=== PATIENT | female | born 1980 | race Caucasian/White ===

== ENCOUNTER 2020-04-24 05:55 | Emergency (ER) | payer SELFPAY ==
[~2020-04-24] VITALS: Ht 177.8 cm; Wt 100.0 kg
--- NOTE | 2020-04-24 06:08 | PHYS DOC ---
Past Medical History Past Medical History: Anxiety Past Surgical History: No Surgical History Smoking Status: Current Every Day Smoker Alcohol Use: None Drug Use: Methamphetamine General Adult EDM: Chief Complaint: ANXIETY/PANIC ATTACK HPI: HPI: 39-year-old female presents to the emergency department after getting in an argument with her boyfriend. Patient uncontrollably crying. Patient not sure why she feels lightheaded. Denies . Methamphetamine pipe found on patient's person upon arrival to ED. Patient reports she has been using methamphetamines as well. Review of Systems: Review of Systems: Constitutional: Denies fever or chills Eyes: Denies redness or eye pain HENT: Denies nasal congestion or sore throat Respiratory: Denies cough or shortness of breath Cardiovascular: Denies chest pain or palpitations GI: Denies abdominal pain, nausea, or vomiting : Denies dysuria or hematuria Musculoskeletal: Denies back pain or joint pain Integument: Denies rash or skin lesions Neurologic: Denies headache, focal weakness or sensory changes Complete systems were reviewed and found to be within normal limits, except as documented in this note. Allergies: Allergies: Allergies Coded Allergies Type Severity Reaction Last Updated Verified No Known Drug Allergies 08/29/14 No Physical Exam: PE: Constitutional: Well developed, well nourished, uncontrollably crying, mismatched clothing and socks HENT: Normocephalic, atraumatic Eyes: Conjunctiva normal, no discharge Neck: Normal range of motion, no tenderness, supple Lungs & Thorax: Hyperventilating, tachypnea, increased work of breathing Abdomen: Soft, no tenderness Skin: Warm, dry, no erythema, no rash Extremities: No tenderness, ROM intact, no edema Neurologic: Alert and oriented X 3, no focal deficits noted Psychologic: Affect anxious, judgment abnormal EKG: EKG: [] Radiology/Procedures: Radiology/Procedures: [] Course & Med Decision Making: Course & Med Decision Making Patient presents with HPI and physical exam consistent for panic attack. Patient not able to communicate well secondary to uncontrollable crying and hyperventilating. IM Ativan provided with interval improvement of symptoms. Patient now calm. Patient with reports of recent methamphetamine use. Patient stable for discharge with outpatient follow-up with PCP/mental health. Mental health resources provided. Discussed findings and plan with patient, who acknowledges understanding and agreement. Pepper Disclaimer: Pepper Disclaimer: This electronic medical record was generated, in whole or in part, using a voice recognition dictation system. Departure Departure Impression: Primary Impression: Anxiety Additional Impression: Methamphetamine abuse Disposition: 01 HOME, SELF-CARE Condition: STABLE Referrals: NO PCP (PCP) Patient Instructions: Alcohol and Drug Addiction, Finding Treatment, Anxiety and Panic Attacks, [id number], Methamphetamine Abuse, Complications Justicifation of Admission Dx: Justifications for Admission: Justification of Admission Dx: N/A TARYN BEMRUDEZ DO Apr 24, 2020 06:08
[2020-04-24 06:38] VITALS: BP 159/77
== END 2020-04-24 06:45 | disposition home or self-care (01) ==
LOC: ER 05:55
DX: F41.9 Anxiety disorder, unspecified (principal); F15.10 Other stimulant abuse, uncomplicated; F17.200 Nicotine dependence, unspecified, uncomplicated
CPT/HCPCS: 96372; 99283; J2060

== ENCOUNTER 2020-04-30 14:37 | Emergency (ER) | payer SELFPAY ==
[~2020-04-30] VITALS: Ht 177.8 cm; Wt 90.9 kg
[2020-04-30 15:20] VITALS: BP 157/91
--- NOTE | 2020-04-30 15:31 | PHYS DOC ---
Past Medical History Past Medical History: Anxiety Past Surgical History: No Surgical History Smoking Status: Current Every Day Smoker Alcohol Use: None Drug Use: Methamphetamine General Adult EDM: Chief Complaint: FOOT INJURY PAIN HPI: HPI: Patient is a 39 year old female who presents with states a couple years ago that she injured her right foot but was not take seen for it. She states that since then she will get these sharp shooting pains in her base of her first metatarsal on the lateral side. She states that she has not reinjured it she just gets intermittent shooting pains. She states that she can still walk on it and wiggle all of her toes. She denies any swelling, numbness or tingling, focal weakness, coolness of the extremity, color change. She states this is been going on for months. She currently rates her pain a 4 out of 10 because I had just been pushing on the area. Patient is ambulatory with a steady gait and has full range of motion of all joints in the right foot. Review of Systems: Review of Systems: Constitutional: Denies fever or chills. [] Eyes: Denies change in visual acuity. [] HENT: Denies nasal congestion or sore throat. [] Respiratory: Denies cough or shortness of breath. [] Cardiovascular: Denies chest pain or edema. [] GI: Denies abdominal pain, nausea, vomiting, bloody stools or diarrhea. [] : Denies dysuria. [] Musculoskeletal: Denies back pain. Right first metatarsal joint pain. [] Integument: Denies rash. [] Neurologic: Denies headache, focal weakness or sensory changes. [] Endocrine: Denies polyuria or polydipsia. [] Lymphatic: Denies swollen glands. [] Psychiatric: Denies depression or anxiety. [] Heart Score: Risk Factors: Risk Factors: DM, Current or recent (<one month) smoker, HTN, HLP, family history of CAD, obesity. Risk Scores: Score 0 - 3: 2.5% MACE over next 6 weeks - Discharge Home Score 4 - 6: 20.3% MACE over next 6 weeks - Admit for Clinical Observation Score 7 - 10: 72.7% MACE over next 6 weeks - Early Invasive Strategies Allergies: Allergies: Allergies Coded Allergies Type Severity Reaction Last Updated Verified No Known Drug Allergies 08/29/14 No Physical Exam: PE: Constitutional: Well developed, well nourished, no acute distress, non-toxic appearance. [] HENT: Normocephalic, atraumatic, bilateral external ears normal, oropharynx moist, no oral exudates, nose normal. [] Eyes: PERRLA, EOMI, conjunctiva normal, no discharge. [] Neck: Normal range of motion, no tenderness, supple, no stridor. [] Cardiovascular:Heart rate regular rhythm, no murmur [] Lungs & Thorax: Bilateral breath sounds clear to auscultation [] Abdomen: Bowel sounds normal, soft, no tenderness, no masses, no pulsatile masses. [] Skin: Warm, dry, no erythema, no rash. [] Back: No tenderness, no CVA tenderness. [] Extremities: No tenderness, no cyanosis, no clubbing, ROM intact, no edema. [] Neurologic: Alert and oriented X 3, normal motor function, normal sensory function, no focal deficits noted. [] Psychologic: Affect normal, judgement normal, mood normal. Normal Physical Exam[] EKG: EKG: [] Radiology/Procedures: Radiology/Procedures: [] Course & Med Decision Making: Course & Med Decision Making Pertinent Labs and Imaging studies reviewed. (See chart for details) Patient states she has not taken any medications to help her with the pain. She states that it is worse with wearing high heels or certain tennis shoes. Patient is alert and oriented. Speaks in full complete sentences. Pedal pulses strong and present. No swelling or redness of any joints or of the extremity itself. No calf tenderness. Skin pink warm and dry. Cap refill less than 3 seconds. Ambulatory with a steady gait. Patient is MSE. No tenderness to the extremity with palpation or the joint. [] Dragon Disclaimer: Dragon Disclaimer: This electronic medical record was generated, in whole or in part, using a voice recognition dictation system. Departure Departure Impression: Primary Impression: Encounter for medical screening examination Disposition: 01 HOME, SELF-CARE Condition: STABLE Referrals: NO PCP (PCP) Patient Instructions: Medical Screening Exam Additional Instructions: Follow up with a primary care provider. Use ice to help with pain. Use Ibuprofen or tylenol for pain. Justicifation of Admission Dx: Justifications for Admission: Justification of Admission Dx: N/A JAMI SOLANO APRN Apr 30, 2020 15:31
== END 2020-04-30 15:30 | disposition home or self-care (01) ==
LOC: ER 14:37
DX: M25.571 Pain in right ankle and joints of right foot (principal); F17.200 Nicotine dependence, unspecified, uncomplicated
CPT/HCPCS: 99282

== ENCOUNTER 2021-06-28 02:52 | Emergency (ER) | payer SELFPAY ==
[~2021-06-28] VITALS: Ht 172.7 cm; Wt 90.9 kg
--- NOTE | 2021-06-28 03:37 | PHYS DOC ---
Past Medical History Past Medical History: Anxiety Past Surgical History: No Surgical History Smoking Status: Current Every Day Smoker Alcohol Use: None Drug Use: Methamphetamine General Adult EDM: Chief Complaint: FLANK PAIN HPI: HPI: Patient is a 40-year-old female presenting for right flank pain. Onset of injury was 4 days ago, she was performing yard work and got hit on the right flank with 2 x 10 object when trying to offload it from a vehicle. She reported immediate right flank pain but thought nothing of it. Reported right-sided flank pain ever since that has been steady and constant since onset. Reported development of right flank bruising that has worsened over past 48 hours. Admits history of cholecystectomy only, no other intra-abdominal abnormalities. She is otherwise healthy with no known medical diagnoses, no medications or blood thinner use. She has had no fever, shortness of breath, chest pain, ripping or tearing sensation in torso, bladder or bowel incontinence, urinary symptoms or hematuria Review of Systems: Review of Systems: Fourteen body systems of review of systems have been reviewed. See HPI for pertinent positives and negative responses, other carballo all other systems are negative, non-pertinent or non-contributory Heart Score: C/O Chest Pain: No Risk Factors: Risk Factors: DM, Current or recent (<one month) smoker, HTN, HLP, family history of CAD, obesity. Risk Scores: Score 0 - 3: 2.5% MACE over next 6 weeks - Discharge Home Score 4 - 6: 20.3% MACE over next 6 weeks - Admit for Clinical Observation Score 7 - 10: 72.7% MACE over next 6 weeks - Early Invasive Strategies Allergies: Allergies: Allergies Coded Allergies Type Severity Reaction Last Updated Verified No Known Drug Allergies 08/29/14 No Physical Exam: PE: Constitutional: Well developed, well nourished, no acute distress, non-toxic appearance. HENT: Normocephalic, atraumatic, bilateral external ears normal, oropharynx moist, no oral exudates, nose normal. Eyes: PERRLA, EOMI, conjunctiva normal, no discharge. Neck: Normal range of motion, no tenderness, supple, no stridor. Cardiovascular: Heart rate regular, sinus rhythm, no murmurs rubs or gallops Lungs & Thorax: Bilateral breath sounds clear to auscultation Abdomen: Bowel sounds normal, soft, mild tenderness present to right flank with ecchymosis consistent with Valencia Acosta's sign, no masses, no pulsatile masses. Nonsurgical abdomen, no peritoneal signs Skin: Warm, dry, no erythema, no rash. Back: No tenderness, right CVA tenderness. Extremities: No tenderness, no cyanosis, no clubbing, ROM intact, no edema. Neurologic: Alert and oriented X 3, grossly normal motor & sensory function, no focal deficits noted. Psychologic: Affect normal, judgement normal, mood normal. Current Patient Data: Labs: Laboratory Tests Test 06/28/21 04:00 06/28/21 04:44 06/28/21 04:48 White Blood Count 5.8 x10^3/uL Red Blood Count 4.16 x10^6/uL Hemoglobin 12.6 g/dL Hematocrit 37.3 % Mean Corpuscular Volume 90 fL Mean Corpuscular Hemoglobin 30 pg Mean Corpuscular Hemoglobin Concent 34 g/dL Red Cell Distribution Width 13.3 % Platelet Count 225 x10^3/uL Neutrophils (%) (Auto) 61 % Lymphocytes (%) (Auto) 20 % Monocytes (%) (Auto) 14 % Eosinophils (%) (Auto) 3 % Basophils (%) (Auto) 2 % Neutrophils # (Auto) 3.5 x10^3/uL Lymphocytes # (Auto) 1.2 x10^3/uL Monocytes # (Auto) 0.8 x10^3/uL Eosinophils # (Auto) 0.2 x10^3/uL Basophils # (Auto) 0.1 x10^3/uL Sodium Level 141 mmol/L Potassium Level 3.9 mmol/L Chloride Level 103 mmol/L Carbon Dioxide Level 32 mmol/L Anion Gap 6 Blood Urea Nitrogen 17 mg/dL Creatinine 1.0 mg/dL Estimated GFR (Cockcroft-Gault) 62.1 BUN/Creatinine Ratio 17 Glucose Level 92 mg/dL Calcium Level 8.4 mg/dL Total Bilirubin 0.1 mg/dL Aspartate Amino Transf (AST/SGOT) 8 U/L Alanine Aminotransferase (ALT/SGPT) 24 U/L Alkaline Phosphatase 58 U/L Total Protein 6.9 g/dL Albumin 3.3 g/dL Albumin/Globulin Ratio 0.9 Urine Collection Type Unknown Urine Color Yellow Urine Clarity Turbid Urine pH 7.5 Urine Specific [place] 1.020 Urine Protein Negative mg/dL Urine Glucose (UA) Negative mg/dL Urine Ketones (Stick) Negative mg/dL Urine Blood Negative Urine Nitrite Negative Urine Bilirubin Negative Urine Urobilinogen Dipstick 1.0 mg/dL Urine Leukocyte Esterase Negative Urine RBC 0 /HPF Urine WBC 5-10 /HPF Urine Squamous Epithelial Cells Few /LPF Urine Amorphous Sediment Present /HPF Urine Bacteria Few /HPF Urine Mucus Mod /LPF Bedside Urine HCG, Qualitative Hcg negative Current Medications Medications (Trade) Dose Ordered Sig/Denis Route PRN Reason Start Time Stop Time Status Last Admin Dose Admin Iohexol (Omnipaque 300 Mg/ml) 75 ml 1X ONCE IV 06/28/21 05:00 06/28/21 05:01 DC 06/28/21 05:25 Info (CONTRAST GIVEN -- Rx MONITORING) 1 each PRN DAILY PRN MC SEE COMMENTS 06/28/21 04:45 06/30/21 04:44 Vital Signs: Vital Signs Date Time Temp Pulse Resp B/P (MAP) Pulse Ox O2 Delivery O2 Flow Rate FiO2 06/28/21 03:00 98.6 86 18 157/91 (113) 98 Room Air 98.6 Vital Signs Date Time Temp Pulse Resp B/P (MAP) Pulse Ox O2 Delivery O2 Flow Rate FiO2 06/28/21 04:46 82 18 139/83 (101) 98 Room Air 06/28/21 03:00 98.6 98.6 EKG: EKG: [] Radiology/Procedures: Radiology/Procedures: Exam:Right ribs with PA chest Date: 06/28/2021 4:56 AM Comparison: No prior Indication: Reason: trauma to right flank with bruising / Spl. Instructions: / History: Findings/ Impression: The heart is not enlarged. Mediastinal and hilar contours are normal. No focal parenchymal airspace opacity. No pleural effusion or pneumothorax. AP, Oblique and Spot images of the right ribs are negative for acute displaced rib fracture. Negative focal pleural elevation. Symmetrical intercostal spacing. It is of note that an acute non-displaced rib fracture can be in-apparent on initial post-trauma imaging. Electronically signed by: Ubaldo Zavala MD (06/28/2021 5:25 AM) [facility] ///////////////////////////////// EXAM: CT Abdomen and Pelvis with IV contrast CLINICAL HISTORY: Reason: blunt trauma to right flank with ecchymosis 4 days ago / Spl. Instructions: ONNI 300 75 ML IV / History: . COMPARISON: none TECHNIQUE: Helical CT of the abdomen and pelvis was performed following the administration of intravenous contrast. Axial, coronal and sagittal reformatted images were generated. PQRS compliance statement - One or more of the following individualized dose reduction techniques were utilized for this study: 1. Automated exposure control 2. Adjustment of the mA and/or kV according to patient size 3. Use of iterative reconstruction technique FINDINGS: Lower Chest: Lung bases are clear. Abdomen and Pelvis: No focal liver lesion. Cholecystectomy clips are seen. No biliary ductal dilatation. Pancreas, spleen and adrenal glands are unremarkable. Symmetric nephrograms. No focal renal lesion. No hydronephrosis. No hydroureter. Bladder is decompressed but otherwise unremarkable. Clips are seen within the pelvis of uncertain clinical significance. Appendix is not convincingly seen although no pericecal inflammatory change. Moderate colonic stool content is seen. No small or large bowel dilatation. No bowel obstruction. No abdominal or pelvic ascites. No abdominal or pelvic lymphadenopathy. Small fat-containing ventral abdominal hernia is seen. There is soft tissue infiltration about the right iliac wing anterolaterally. Bones: No aggressive osseous lesion. No definite fracture is identified IMPRESSION: 1. Infiltration overlying the anterolateral aspect of the right iliac wing likely from provided history of blunt trauma. No associated fracture. 2. Moderate colonic stool content. No bowel obstruction. 3. Accounting for postcholecystectomy change, no biliary ductal dilatation. 4. Small fat-containing ventral abdominal hernia. Electronically signed by: Ubaldo Zavala MD (06/28/2021 5:48 AM) [facility] Course & Med Decision Making: Course & Med Decision Making Pertinent Labs and Imaging studies reviewed. (See chart for details) [] Dragon Disclaimer: Dragon Disclaimer: This electronic medical record was generated, in whole or in part, using a voice recognition dictation system. Departure Departure Impression: Primary Impression: Flank pain Disposition: 01 HOME / SELF CARE / HOMELESS Condition: STABLE Referrals: NO PCP (PCP) Additional Instructions: As discussed prior to ER departure, your vitals, physical exam and comprehensive ER work-up was nonconcerning for any emergent or surgical issues. He suffered extensive bruising from recent blunt force trauma to your sides but there are no broken ribs or other intra-abdominal abnormalities. Please continue supportive care practices and follow-up with outpatient primary care provider for continued treatment as indicated. Any concerning signs or symptoms present prior to outpatient follow-up please do not hesitate to come back for repeat evaluation. It was a pleasure to take care of you and I wish you the best going forward LUZ ELENA SANCHEZ DO Jun 28, 2021 03:37
[2021-06-28 04:07] LABS: BASO # 0.1 x10^3/uL (0.0-0.2); BASO % 2 % (0-3); EOS # 0.2 x10^3/uL (0.0-0.7); EOS % 3 % (0-3); HEMATOCRIT 37.3 % (36.0-47.0); HEMOGLOBIN 12.6 g/dL (12.0-15.5); LYMPH # 1.2 x10^3/uL (1.0-4.8); LYMPH % 20 % (24-48); MEAN CORPUSCULAR HEMOGLOBIN 30 pg (25-35); MEAN CORPUSCULAR HGB CONC 34 g/dL (31-37); MEAN CORPUSCULAR VOLUME 90 fL (79-100); MONO # 0.8 x10^3/uL (0.0-1.1); MONO % 14 % (0-9); NEUT # 3.5 x10^3/uL (1.8-7.7); NEUT % 61 % (31-73); PLATELET COUNT 225 x10^3/uL (140-400); RED BLOOD COUNT 4.16 x10^6/uL (3.50-5.40); RED CELL DISTRIBUTION WIDTH 13.3 % (11.5-14.5); WHITE BLOOD COUNT 5.8 x10^3/uL (4.0-11.0)
[2021-06-28 04:15] LABS: CALCIUM 8.4 mg/dL (8.5-10.1); GFR 62.1; POTASSIUM 3.9 mmol/L (3.5-5.1)
[2021-06-28 04:20] LABS: ALBUMIN 3.3 g/dL (3.4-5.0); ALBUMIN/GLOBULIN RATIO 0.9 (1.0-1.7); TOTAL BILIRUBIN 0.1 mg/dL (0.2-1.0); TOTAL PROTEIN 6.9 g/dL (6.4-8.2)
[2021-06-28] MEDS ORDERED: CONTRAST GIVEN. MC PRN (04:45)
[2021-06-28 04:51] LABS: BILIRUBIN,URINE NEGATIVE (NEG); CLARITY,URINE TURBID; COLOR,URINE YELLOW; NITRITE,URINE NEGATIVE (NEG); PH,URINE 7.5 (<5.0-8.0); PROTEIN,URINE NEGATIVE (NEG-TRACE)
[2021-06-28 05:00] LABS: AMORPHOUS SEDIMENT,UR PRESENT /HPF; BACTERIA,URINE FEW /HPF (0-FEW); RBC,URINE 0 /HPF (0-2)
[2021-06-28] MEDS ORDERED: IOHEXOL 300 MG/ML 100ML VIAL. IV ONE (05:00)
--- NOTE | 2021-06-28 05:27 | RAD ---
Exam:Right ribs with PA chest Date: 06/28/2021 4:56 AM Comparison: No prior Indication: Reason: trauma to right flank with bruising / Spl. Instructions: / History: Findings/ Impression: The heart is not enlarged. Mediastinal and hilar contours are normal. No focal parenchymal airspace o pacity. No pleural effusion or pneumothorax. AP, Oblique and Spot images of the right ribs are negative for acute displaced rib fracture. Negativ e focal pleural elevation. Symmetrical intercostal spacing. It is of note that an acute non-displaced rib fracture can be in-apparent on initial post-trauma imag ing. Electronically signed by: Ubaldo Zavala MD (06/28/2021 5:25 AM) [facility]
--- NOTE | 2021-06-28 05:50 | RAD ---
EXAM: CT Abdomen and Pelvis with IV contrast CLINICAL HISTORY: Reason: blunt trauma to right flank with ecchymosis 4 days ago / Spl. Instructions: ONNI 300 75 ML IV / History: . COMPARISON: none TECHNIQUE: Helical CT of the abdomen and pelvis was performed following the administration of intrave nous contrast. Axial, coronal and sagittal reformatted images were generated. PQRS compliance statement - One or more of the following individualized dose reduction techniques wer e utilized for this study: 1. Automated exposure control 2. Adjustment of the mA and/or kV according to patient size 3. Use of iterative reconstruction technique FINDINGS: Lower Chest: Lung bases are clear. Abdomen and Pelvis: No focal liver lesion. Cholecystectomy clips are seen. No biliary ductal dilatation. Pancreas, spleen and adrenal glands are unremarkable. Symmetric nephrograms. No focal renal lesion. No hydronephrosis . No hydroureter. Bladder is decompressed but otherwise unremarkable. Clips are seen within the pelvi s of uncertain clinical significance. Appendix is not convincingly seen although no pericecal inflamm atory change. Moderate colonic stool content is seen. No small or large bowel dilatation. No bowel ob struction. No abdominal or pelvic ascites. No abdominal or pelvic lymphadenopathy. Small fat-containi ng ventral abdominal hernia is seen. There is soft tissue infiltration about the right iliac wing anterolaterally. Bones: No aggressive osseous lesion. No definite fracture is identified IMPRESSION: 1. Infiltration overlying the anterolateral aspect of the right iliac wing likely from provided hist ory of blunt trauma. No associated fracture. 2. Moderate colonic stool content. No bowel obstruction. 3. Accounting for postcholecystectomy change, no biliary ductal dilatation. 4. Small fat-containing ventral abdominal hernia. Electronically signed by: Ubaldo Zavala MD (06/28/2021 5:48 AM) [facility]
[2021-06-28 06:16] VITALS: BP 147/87
== END 2021-06-28 06:35 | disposition home or self-care (01) ==
LOC: ER 02:52
DX: R10.9 Unspecified abdominal pain (principal); R07.89 Other chest pain; F41.9 Anxiety disorder, unspecified; F17.200 Nicotine dependence, unspecified, uncomplicated
CPT/HCPCS: 36415; 71101; 74177; 80053; 81001; 81025; 85025; 87086; 99285; Q9967